=== PATIENT | female | born 1940 | race Caucasian/White ===

== ENCOUNTER 2018-04-02 09:25 | Outpatient (CLI) | payer OTHER ==
[~2018-04-02 09:25] MED LIST: CATAFLAM50 MG PO; GNP B-COMPLEX1 EACH; LISINOPRIL-HCTZ1 T13; ZOCOR20 MG
== END 2018-04-02 11:13 | disposition home or self-care (01) ==
LOC: LAB 09:25
DX: D64.89 Other specified anemias (principal); E78.2 Mixed hyperlipidemia; E03.8 Other specified hypothyroidism; N39.0 Urinary tract infection, site not specified; K92.1 Melena; E55.9 Vitamin D deficiency, unspecified; E11.29 Type 2 diabetes mellitus with other diabetic kidney complication

== ENCOUNTER 2019-07-17 12:33 | Outpatient (CLI) | payer OTHER | END 2019-07-17 12:43 | disposition home or self-care (01) | LOC: RAD 12:33 | DX: M54.2 Cervicalgia (principal) ==